=== PATIENT | male | born 1965 | race Caucasian/White ===

== ENCOUNTER 2019-04-07 22:31 | Inpatient (IN) | payer BC ==
[2019-04-07] MEDS ORDERED: Ketorolac INJ* 30 MG/ML 1 ML VIAL IV PUSH ONE (23:24)
[2019-04-07] MEDS ORDERED: Ondansetron INJ* 2 MG/ML VIAL IV ONE (23:24)
[2019-04-07] MEDS ORDERED: NS 0.9% 1000 ML** 1,000 ML IV ONE (23:24)
[2019-04-08 00:12] LABS: ABS Eosinophils 0.1 10^3/ul (0-0.6); ABS Lymphocytes 0.8 10^3/ul (1.0-4.8); ABS Monocytes 0.3 10^3/ul (0-0.8); ABS Neutrophils 6.9 10^3/ul (1.5-7.7); Eosinophil % 0.8 %; Hematocrit 41 % (42-52); Hemoglobin 14.5 g/dL (14.0-18.0); Lymphocyte % 10.2 %; Mean Corpuscular HGB Conc 35 g/dL (31-36); Mean Corpuscular Hemoglobin 32 pg (27-31); Mean Corpuscular Volume 89 fL (80-94); Mean Platelet Volume 8.1 fL (7.4-10.4); Nucleated Red Blood Cells % 0.2; Platelet Count 152 10^3/uL (150-450); Red Blood Count 4.61 10^6 /uL (4.18-5.48); Red Cell Distribution Width 13 % (10-15); White Blood Count 8.2 10^3/uL (3.5-10.8)
[2019-04-08 00:15] LABS: INR 0.95 (0.82-1.09)
[2019-04-08] MEDS ORDERED: Morphine 4 MG/ML VIAL (1 ml) 4 MG/ML VIAL IV ONE (00:21)
[2019-04-08 00:28] LABS: Albumin 4.3 g/dL (3.2-5.2); Albumin/Globulin Ratio 1.7 (1-3); C Reactive Protein 6.15 mg/L (<8.01); Calcium 9.3 mg/dL (8.6-10.3); EGFR African American 94.2 (>60); EGFR Non-African American 77.9 (>60); Globulin 2.6 g/dL (2-4); Potassium 3.6 mmol/L (3.5-5.0); Total Bilirubin 0.7 mg/dL (0.2-1.0); Total Protein 6.9 g/dL (6.4-8.9)
--- NOTE | 2019-04-08 00:40 | ED ---
Abdominal Pain/Male - HPI Summary HPI Summary: Patient is a 53 y/o M presenting to [facility] with complaints of abdominal pain. Pain initially onset at around 1700 04/07/19 and has progressively worsened. He states that the pain is at his lower abdomen and radiates towards his upper abdomen. Patient also makes note of a sharp pain that he has just below his right rib cage. He endorses shakiness and attributes this to his pain. Patient also notes that he experiences an exacerbation of his pain whenever he tries to void and states that he has been unable to void since 1700. N/V/D, fever and chills are denied. On triage, pain is rated 10/10, position is noted to aggravate Sx. Patient states that he had a somewhat similar episode of Sx when he had diverticulitis years ago. However, he states that he did not have the sharp, upper right pain that he has been currently experiencing. Hx of HTN and GERD endorsed as well. Patient was recently started on a beta annamaria. He notes that he is on metformin. The patient states that he has been told by one doctor that he is pre-diabetic and another has told him he is not as his blood sugar was WNL. Home medications and allergies are reviewed. - History of Current Complaint Chief Complaint: EDAbdPain Stated Complaint: ABD PAIN PER PT Time Seen by Provider: 04/07/19 23:23 Hx Obtained From: Patient Onset/Duration: Lasting Hours, Still Present Timing: Lasting Hours Severity Currently: Severe Pain Intensity: 10 Pain Scale Used: 0-10 Numeric Location: Other - lower abdomen Radiates: Yes Radiates to: Other - upper abdomen Character: Sharp - under right rib cage Aggravating Factor(s): Movement Alleviating Factor(s): Nothing Associated Signs And Symptoms: Positive: Other - positive - abdominal pain, shakiness, inability to void. Negative: Fever, Nausea, Vomiting, Diarrhea - Allergies/Home Medications Allergies/Adverse Reactions: Allergies Allergy/AdvReac Type Severity Reaction Status Date / Time No Known Allergies Allergy Verified 10/26/13 15:21 Home Medications: Home Medications Metformin ER (NF) 04/07/19 [History] Sertraline* 04/07/19 [History] PMH/Surg Hx/FS Hx/Imm Hx Cardiovascular History: Reports: Hx Hypertension GI History: Reports: Hx Gastroesophageal Reflux Disease, Other GI Disorders - diverticulitis Sensory History: Denies: Hx Legally Blind, Hx Deafness Opthamlomology History: Denies: Hx Legally Blind EENT History: Denies: Hx Deafness Infectious Disease History: No Infectious Disease History: Denies: Traveled Outside the [place] in Last 30 Days - Family History Known Family History: Positive: Other - no FMHx of diverticulitis - Social History Alcohol Use: Daily Alcohol Amount: 2 glasses wine Substance Use Type: Reports: None Smoking Status (MU): Unknown if Ever Smoked Review of Systems - ROS Summary Review of Systems Summary: Home Medications Medication Instructions Recorded Confirmed Type Metformin ER (NF) 04/07/19 History Sertraline* 04/07/19 History Constitutional: Other - positive - shakiness Negative: Fever, Chills Positive: Abdominal Pain. Negative: Vomiting, Diarrhea, Nausea Genitourinary: Other - positive - inability to void All Other Systems Reviewed And Are Negative: Yes Physical Exam - Summary Physical Exam Summary: General: Well-developed, Obese male. Mild discomfort at rest noted. HEENT: Normocephalic, Atraumatic. Eyes: Conjuctiva normal, PERRL. Oropharynx: Clear, mucous membranes moist, (-) exudates. Neck: Soft, FROM, (-) lymphadenopathy, (-) thyromegaly, (-) JVD. Cardiovascular: Normal sinus rhythm, (-) murmur. Lungs: Clear to auscultation bilaterally (-) wheezes, (-) rales, (-) rhonchi. Abdomen: Moderate tenderness at LLQ, RLQ, suprapubic area, and right lateral abdomen. Soft, non-distended, (-) organomegaly, normal bowel sounds. Back: (-) CVA tenderness Extremities: No edema. Skin: Warm, dry, (-) rash. Neuro: Alert and oriented x3, no focal deficits. Psychiatric: Mood normal, affect normal. Triage Information Reviewed: Yes Vital Signs On Initial Exam: Initial Vitals Temp Pulse Resp BP Pulse Ox 97.9 F 80 22 148/100 98 04/07/19 22:32 04/07/19 22:32 04/07/19 22:32 04/07/19 22:32 04/07/19 22:32 Vital Signs Reviewed: Yes Procedures - Sedation Patient Received Moderate/Deep Sedation with Procedure: No Diagnostics - Vital Signs Vital Signs Temp Pulse Resp BP Pulse Ox 04/08/19 00:25 24 04/07/19 23:48 99.5 F 90 22 153/87 97 04/07/19 22:32 97.9 F 80 22 148/100 98 - Laboratory Lab Results: Lab Results 04/08/19 04/08/19 04/08/19 Range/Units 00:01 00:01 00:01 WBC 8.2 (3.5-10.8) 10^3/uL RBC 4.61 (4.18-5.48) 10^6 /uL Hgb 14.5 (14.0-18.0) g/dL Hct 41 L (42-52) % MCV 89 (80-94) fL MCH 32 H (27-31) pg MCHC 35 (31-36) g/dL RDW 13 (10-15) % Plt Count 152 (150-450) 10^3/uL MPV 8.1 (7.4-10.4) fL Neut % (Auto) 84.5 % Lymph % (Auto) 10.2 % [place] % (Auto) 4.3 % Eos % (Auto) 0.8 % Baso % (Auto) 0.2 % Absolute Neuts (auto) 6.9 (1.5-7.7) 10^3/ul Absolute Lymphs (auto) 0.8 L (1.0-4.8) 10^3/ul Absolute Monos (auto) 0.3 (0-0.8) 10^3/ul Absolute Eos (auto) 0.1 (0-0.6) 10^3/ul Absolute Basos (auto) 0.0 (0-0.2) 10^3/ul Absolute Nucleated RBC 0.0 10^3/ul Nucleated RBC % 0.2 INR (Anticoag Therapy) 0.95 (0.82-1.09) Lactic Acid 1.3 (0.5-2.0) mmol/L Result Diagrams: 04/08/19 00:01 04/08/19 00:01 Lab Statement: Any lab studies that have been ordered have been reviewed, and results considered in the medical decision making process. - CT CT ABD/PEL CT Interpretation Completed By: Radiologist Summary of CT Findings: IMPRESSION: There is colonic diverticulosis with wall thickening and fat stranding in the. sigmoid colon consistent with acute diverticulitis. There are air locules in. the adjacent inflamed mesenteric fat and a small quantity of free. intraperitoneal air also present consistent with complicated acute. diverticulitis with gross perforation but no visible abscess. THIS REPORT WAS REVIEWED BY ED PHYSICIAN. Re-Evaluation - Re-Evaluation First Eval Re-Evaluation Time: 00:33 Comment: Pain is still present after toradol, morphine administered. Bladder scan showed 75 CC only. Second Eval Re-Evaluation Time: 01:11 Comment: Pain is worsening. Fentanyl 100 mcg and more IV fluids given. Patient is unable to urinate. CT ordered. Third Eval Re-Evaluation Time: 02:38 Comment: CT discussed, patient is agreeable with admission. Abdominal Pain Male Course/Dx - Course Course Of Treatment: 53-year-old male presenting with lower abdominal pain. History of diverticulitis. Pain initially started in the left lower quadrant has moved to the right lower quadrant. No vomiting or diarrhea. No fevers. Workup demonstrates normal white blood cell count and lactic acid. Vitals stable. CT scan demonstrates acute diverticulitis with perforation. No obvious abscess. During ED course, patient received 2 L NS, Zofran 4 mg IV, Toradol 15 mg IV, morphine 4 mg IV, fentanyl 100 mcg, fentanyl 50 mcg, and piperacillin sod/tazobactam sod 3.375 gm in sodium chloride 100 mls @ 200 mls/ hr IVPB. Discussed with surgery on-call. They reviewed the CAT scan and agreed to consult in the morning. Admit to medicine. Patient referred to hospitalist for admission. - Diagnoses Provider Diagnoses: Diverticulitis of colon with perforation - Provider Notifications Discussed Care Of Patient With: Jeremiah Cornejo Time Discussed With Above Provider: 02:25 Instructed by Provider To: Other - 0220 - Dr. Oliver called about CT ABD/PEL. He states that the patient appears to have acute diverticulitis with obvious perforation, no abscess noted. 5 - Patient's case was discussed with Dr. Cornejo, Dr. Cornejo recommends antibiotics and admission. He will consult on case. 7 - Patient's case was discussed with Dr. Cramer, Dr. Cramer accepts for admission. Discharge ED - Sign-Out/Discharge Documenting (check all that apply): Patient Departure - admit - Discharge Plan Condition: Stable Disposition: ADMITTED TO [facility] Referrals: Johnny Wheeler MD [Primary Care Provider] - - Billing Disposition and Condition Condition: STABLE Disposition: Admitted to [facility] - Attestation Statements Document Initiated by Norberto: Yes Documenting Scribe: SUGEY MALLOY Provider For Whom Norberto is Documenting (Include Credential): GILES JAIMES MD Scribe Attestation: ISUGEY, scribed for GILES JAIMES MD on 04/08/19 at 0441. Scribe Documentation Reviewed: Yes Provider Attestation: The documentation as recorded by the SUGEY salter accurately reflects the service I personally performed and the decisions made by me, GILES JAIMES MD Status of Scribe Document: Viewed
[2019-04-08] MEDS ORDERED: NS 0.9% 1000 ML** 1,000 ML IV ONE (01:04)
[2019-04-08] MEDS ORDERED: fentaNYL* 50 MCG/ML 2 ML VIAL (100 MCG VIAL) IV SLOW PU ONE ×2 (01:05→02:22)
[2019-04-08] MEDS ORDERED: Iohexol 300* (CONTRAST) 10 ML SDV IV ONE (01:12)
[2019-04-08] MEDS ORDERED: Piperacillin/Tazobac ADVAN(*) 3.375 GM in NS 0.9% 100 ML* 100 ML IVPB ONE (02:25)
[2019-04-08 03:19] LABS: Urine Appearance Clear; Urine Bilirubin Negative (Negative); Urine Blood Negative (Negative); Urine Color Yellow; Urine Glucose Negative (Negative); Urine Ketones Negative (Negative); Urine Nitrite Negative (Negative); Urine Protein Negative (Negative); Urine Specific Gravity > 1.060 (1.010-1.030); Urine Urobilinogen Negative (Negative)
[2019-04-08] MEDS ORDERED: Acetaminophen TAB* 325 MG PO PRN (04:11)
[2019-04-08] MEDS ORDERED: Ondansetron INJ* 2 MG/ML VIAL IV PRN (04:33)
[2019-04-08 04:55] LABS: Magnesium 1.6 mg/dL (1.9-2.7)
[2019-04-08] MEDS ORDERED: Zosyn per Pharmacy* NOTE FOLLOW UP SCH (05:00)
[2019-04-08] MEDS: HYDROmorphone INJ1* 1 MG/ML SYRINGE IV SLOW PU PRN ×2 (05:25→09:02)
[2019-04-08] MEDS: Enoxaparin(*) 40 MG/0.4 ML SYR SUBCUT SCH (05:38)
[2019-04-08] MEDS: NS 0.9% w/ 20 Meq KCL 1000 ML* 1,000 ML IV SCH ×2 (05:41→23:00)
[2019-04-08] MEDS: ZOSYN 3.375 GM Q8H per EXTENDED INFUSION IVPB SCH ×6 (06:17→23:00)
--- NOTE | 2019-04-08 09:17 | CONSULT ---
Consult Consult: DATE OF CONSULT: 04/08/19 REASON FOR CONSULT: Abdominal pain due to diverticulitis HPI: Brandon Day is a 53-year-old with a history of diabetes and hypertension who presented to the ER last night with severe abdominal pain. He reports that at about 5 PM yesterday he had sudden onset of shooting lower abdominal pain radiating to the groin. He previously had been feeling his usual self The pain did not improve so he presented to the ED last night. He denies any fevers or chills. He denies nausea, vomiting, or diarrhea. His last bowel movement was at about 1 PM yesterday and was normal. He was hospitalized about 10 years ago for diverticulitis and treated with antibiotics alone. His last colonoscopy in 2013 was only remarkable for 2 benign polyps. He has had similar abdominal pain episodes which have been less severe. The last episode was a couple years ago, and he was treated as an outpatient with oral antibiotics. A CT scan of the abdomen and pelvis was performed in the ED. It was notable for acute diverticulitis with pneumoperitoneum localized to the lower abdomen. He was admitted to the hospitalist service and started on Zosyn. This admission the patient feels the pain is more or less the same. He has been receiving fentanyl which has been helping but wears off quickly. PMH: Hypertension Diabetes (he has been told that he was prediabetic but was started on metformin) Anxiety PSH: None Home Medications Medication Instructions Recorded Confirmed Type Metformin ER (NF) 04/07/19 History Sertraline* 04/07/19 History Allergies No Known Allergies Allergy (Verified 10/26/13 15:21) FAMILY HISTORY: Father from metastatic lung cancer. Mother is alive and has diabetes. Sister is healthy. There is a history of colon cancer in his maternal grandfather who was diagnosed in his 70s. SOCIAL HISTORY: The patient lives with his . He owns a liquor store. He denies tobacco or recreational drug use. He drinks at most 3-4 glasses of wine each day. ROS: A 10 point review of systems was obtained and pertinent positives and negatives are in the HPI. PHYSICAL EXAM: Temp Pulse Resp BP Pulse Ox 97.2 F 94 24 114/70 98 04/08/19 05:22 04/08/19 05:22 04/08/19 09:02 04/08/19 05:22 04/08/19 05:22 General: Very pleasant man. Appears uncomfortable. Head: Normocephalic and atraumatic Eyes: EOMI. No scleral icterus. Mouth: Moist mucous membranes. Neck: Trachea midline CV: Regular rate and rhythm. Respiratory: Clear to auscultation bilaterally. Abdomen: Soft. Moderately distended. Tender to palpation in the lower abdomen at the midline in the right lower quadrant. No guarding. Extremities: Warm and well perfused. No pedal edema. Skin: No lesions or rashes noted. Neuro: Alert and oriented 3. Laboratory Results - last 24 hr 04/08/19 04/08/19 04/08/19 00:01 00:01 00:01 WBC 8.2 RBC 4.61 Hgb 14.5 Hct 41 L MCV 89 MCH 32 H MCHC 35 RDW 13 Plt Count 152 MPV 8.1 Neut % (Auto) 84.5 Lymph % (Auto) 10.2 Sutter % (Auto) 4.3 Eos % (Auto) 0.8 Baso % (Auto) 0.2 Absolute Neuts (auto) 6.9 Absolute Lymphs (auto) 0.8 L Absolute Monos (auto) 0.3 Absolute Eos (auto) 0.1 Absolute Basos (auto) 0.0 Absolute Nucleated RBC 0.0 Nucleated RBC % 0.2 INR (Anticoag Therapy) 0.95 Sodium 136 Potassium 3.6 Chloride 100 L Carbon Dioxide 27 Anion Gap 9 BUN 22 Creatinine 1.00 Est GFR ( Amer) 94.2 Est GFR (Non-Af Amer) 77.9 BUN/Creatinine Ratio 22.0 H Glucose 108 H Hemoglobin A1c Lactic Acid Calcium 9.3 Magnesium 1.6 L Total Bilirubin 0.70 AST 22 ALT 26 Alkaline Phosphatase 45 C-Reactive Protein 6.15 Total Protein 6.9 Albumin 4.3 Globulin 2.6 Albumin/Globulin Ratio 1.7 Lipase 20 Urine Color Urine Appearance Urine pH Ur Specific D[place]man Urine Protein Urine Ketones Urine Blood Urine Nitrate Urine Bilirubin Urine Urobilinogen Ur Leukocyte Esterase Urine Glucose 04/08/19 04/08/19 04/08/19 00:01 00:01 03:10 WBC RBC Hgb Hct MCV MCH MCHC RDW Plt Count MPV Neut % (Auto) Lymph % (Auto) Sutter % (Auto) Eos % (Auto) Baso % (Auto) Absolute Neuts (auto) Absolute Lymphs (auto) Absolute Monos (auto) Absolute Eos (auto) Absolute Basos (auto) Absolute Nucleated RBC Nucleated RBC % INR (Anticoag Therapy) Sodium Potassium Chloride Carbon Dioxide Anion Gap BUN Creatinine Est GFR ( Amer) Est GFR (Non-Af Amer) BUN/Creatinine Ratio Glucose Hemoglobin A1c 5.6 Lactic Acid 1.3 Calcium Magnesium Total Bilirubin AST ALT Alkaline Phosphatase C-Reactive Protein Total Protein Albumin Globulin Albumin/Globulin Ratio Lipase Urine Color Yellow Urine Appearance Clear Urine pH 6.0 Ur Specific D[place]man > 1.060 H Urine Protein Negative Urine Ketones Negative Urine Blood Negative Urine Nitrate Negative Urine Bilirubin Negative Urine Urobilinogen Negative Ur Leukocyte Esterase Negative Urine Glucose Negative Diagnostics Summary of CT Findings [CT ABD /PEL] IMPRESSION: There is colonic diverticulosis with wall thickening and fat stranding in the sigmoid colon consistent with acute diverticulitis . There are air locules in the adjacent inflamed mesenteric fat and a small quantity of free intraperitoneal air also present consistent with complicated acute diverticulitis with gross perforation but no visible abscess. THIS REPORT WAS REVIEWED BY ED PHYSICIAN. ASSESSMENT: 53-year-old man with acute diverticulitis with perforation. I do not see evidence of generalized peritonitis on physical exam. I discussed with the patient that it would be reasonable to treat first with IV antibiotics. If he has worsening pain or becomes hemodynamically unstable, he may need emergent exploratory laparotomy, colon resection, colostomy. PLAN: Continue Zosyn. Consider GRE TUTOR for better pain control. We will continue to follow closely.
--- NOTE | 2019-04-08 09:58 | HP ---
CC: Dr. Wheeler * ADMISSION HISTORY AND PHYSICAL: DATE OF ADMISSION: 04/08/19 CHIEF COMPLAINT: Abdominal pain. HISTORY OF PRESENT ILLNESS: Mr. Day is a 53-year-old man with history of recurrent diverticulitis who developed abdominal pain in the lower abdomen area certainly around 5 p.m. today. The pain began in his lower abdomen and generalized and seemed to move to his right lower quadrant up to his right upper quadrant as hours went by. He rates the pain at 10/10 and the pain comes in waves. It is not associated with vomiting, nausea, or diarrhea. The pain is similar to previous episodes with diverticulitis. Review of chart shows that he had a colonoscopy in 2005 and a second colonoscopy in 2008 and that colonoscopy report documented that he had 3 prior episodes of diverticulitis in the sigmoid at that point. The patient states he has had no further diverticulitis in 10 years. PAST MEDICAL HISTORY: Includes hypertension, impaired fasting glucose versus diabetes, anxiety. PAST SURGICAL HISTORY: None. MEDICATIONS: 1. He takes metformin every day. 2. Sertraline once a day. 3. Blood pressure medication once a day. He is not sure of the names or doses of some of his medicines. ALLERGIES: None. FAMILY HISTORY: The patient reports a maternal grandfather with colon cancer. Mother had breast cancer. Father had lung cancer. His mother also had diabetes. 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 He is . He has 2 children. He does not smoke. He drinks wine about 3 glasses per day. No recreational drugs. REVIEW OF SYSTEMS: The patient denies any anorexia or weight loss in the recent days. The patient denies any chest pain or palpitations. The patient had chest pain 2 days ago associated with anxiety and Dr. Wheeler scheduled him for a stress test next month. The patient denies any cough, hemoptysis, or shortness of breath. The remainder of 14-point review of systems negative other than mentioned in the HPI. PHYSICAL EXAMINATION GENERAL: He is alert, in no acute distress. VITAL SIGNS: Temperature is 36.4, pulse 100, respirations 18, blood pressure 145/100, O2 sat 97%. HEENT: Head is normocephalic and atraumatic. Sclerae anicteric. Pupils are equal, round and reactive to light and accommodation. Oropharynx is moist. No lesions. NECK: No JVD. No carotid bruit. No thyromegaly. LUNGS: Clear to auscultation and percussion bilaterally. HEART: Tachycardic and regular. ABDOMEN: Soft. Tender throughout. Positive bowel sounds. No hepatosplenomegaly. EXTREMITIES: No peripheral edema. Dorsalis pedis pulses are 2+ bilaterally. NEUROLOGIC: Cranial nerves II through XII are intact. Motor strength is 5/5 throughout. Deep tendon reflexes are symmetric. MENTAL STATUS: He is alert and oriented x3. DIAGNOSTIC STUDIES/LAB DATA: Sodium 136, potassium 3.6, chloride 100, bicarb 27, BUN 22, creatinine 1.0, glucose 108, calcium 9.3. Albumin 4.3, AST 22, ALT 26, bilirubin 0.7, lactic acid 1.3, INR 0.95, lipase is 20. White count is 8.2 , hemoglobin 14.5, hematocrit 41%, platelets are 152. Urinalysis shows specific gravity greater than 1.060. CT abdomen and pelvis shows acute sigmoid diverticulitis with perforation with small air locules and mesenteric fat inflammation. ASSESSMENT AND PLAN: This is a 53-year-old man with recurrent sigmoid diverticulitis. The patient will be admitted to medical floor and maintain hydration with intravenous normal saline. We can continue him on Zosyn and follow any blood cultures to possibly narrow antibiotic coverage. He will have consultation with Surgery regarding the perforation. This may be managed conservatively versus he may develop an abscess that requires IR drainage. Along with that, we can consider having sigmoidectomy due to recurrent diverticulitis. Code status: Full DVT prophylaxis: We will give him subcutaneous Lovenox. [id number]/[facility] #: [id number] [facility] HOSPITALDunia
[2019-04-08] MEDS ORDERED: Naloxone* 0.4 MG/ML 1 ML VIAL IV PUSH PRN (11:53)
[2019-04-08] MEDS: HYDROmorphone PCA* 20 MG/20 ML PCA.SYRING PCA SCH (12:40)
--- NOTE | 2019-04-08 13:33 | PN ---
Subjective Date of Service: 04/08/19 Interval History: Pt c/o severe abd pain despite tx with Dilaudid Q3H. Last BM yesterday, no nausea Objective Active Medications: Acetaminophen (Tylenol Tab*) 650 mg PO Q4H PRN PRN Reason: FEVER/HEADACHE Enoxaparin Sodium (Lovenox(*)) 40 mg SUBCUT Q24H [facility] Last Admin: 04/08/19 05:38 Dose: 40 mg Potassium Chloride/Sodium Chloride (Ns 0.9% W/ 20 Meq Kcl 1000 Ml*) 1,000 mls @ 100 mls/hr IV PER RATE [facility] Last Admin: 04/08/19 05:41 Dose: 100 mls/hr Piperacillin Sod/Tazobactam (Sod 3.375 gm/ Sodium Chloride) 100 mls @ 25 mls/ hr IVPB Q8H [facility] Last Admin: 04/08/19 06:17 Dose: 25 mls/hr Hydromorphone HCl (Dilaudid Public Health Program Manager*) 20 mg in 20 mls @ 0 mls/hr FOOD MIXER Q24H [facility]; Protocol Last Admin: 04/08/19 12:40 Dose: 1 mls/hr Naloxone HCl (Narcan*) 0.08 mg IV PUSH .Q2MIN PRN PRN Reason: OVERSEDATION Ondansetron HCl (Zofran Inj*) 4 mg IV Q6H PRN PRN Reason: NAUSEA Pantoprazole Sodium (Protonix Iv*) 40 mg IV DAILY [facility] Pharmacy Consult (Zosyn Per Pharmacy*) 1 note FOLLOW UP .ZOSYN PER PHARMACY [facility] Vital Signs - 8 hr 04/08/19 04/08/19 04/08/19 06:46 09:02 11:55 Pulse Rate Respiratory 18 24 24 Rate Blood Pressure (mmHg) O2 Sat by Pulse 90 Oximetry 04/08/19 04/08/19 12:40 12:43 Pulse Rate 87 Respiratory 24 24 Rate Blood Pressure 152/102 (mmHg) O2 Sat by Pulse 90 Oximetry Oxygen Devices in Use Now: None Appearance: 53 to M in nAD, aAOx3 Eyes: No Scleral Icterus, PERRLA Ears/Nose/Mouth/Throat: NL Teeth, Lips, Gums, Mucous Membranes Moist Neck: NL Appearance and Movements; NL JVP, Trachea Midline Respiratory: Symmetrical Chest Expansion and Respiratory Effort, Clear to Auscultation Cardiovascular: NL Sounds; No Murmurs; No JVD, RRR Abdominal: - - distended, tympanic, with voluntary quarding and hypoactive bowel sounds throughout Lymphatic: No Cervical Adenopathy Extremities: No Edema, No Clubbing, Cyanosis Skin: No Rash or Ulcers, No Nodules or Sclerosis Neurological: Alert and Oriented x 3, NL Muscle Strength and Tone Result Diagrams: 04/08/19 00:01 04/08/19 00:01 Additional Lab and Data: Lab Results 04/08/19 04/08/19 04/08/19 Range/Units 00:01 00:01 00:01 WBC 8.2 (3.5-10.8) 10^3/uL RBC 4.61 (4.18-5.48) 10^6 /uL Hgb 14.5 (14.0-18.0) g/dL Hct 41 L (42-52) % MCV 89 (80-94) fL MCH 32 H (27-31) pg MCHC 35 (31-36) g/dL RDW 13 (10-15) % Plt Count 152 (150-450) 10^3/uL MPV 8.1 (7.4-10.4) fL Neut % (Auto) 84.5 % Lymph % (Auto) 10.2 % [place] % (Auto) 4.3 % Eos % (Auto) 0.8 % Baso % (Auto) 0.2 % Absolute Neuts (auto) 6.9 (1.5-7.7) 10^3/ul Absolute Lymphs (auto) 0.8 L (1.0-4.8) 10^3/ul Absolute Monos (auto) 0.3 (0-0.8) 10^3/ul Absolute Eos (auto) 0.1 (0-0.6) 10^3/ul Absolute Basos (auto) 0.0 (0-0.2) 10^3/ul Absolute Nucleated RBC 0.0 10^3/ul Nucleated RBC % 0.2 INR (Anticoag Therapy) 0.95 (0.82-1.09) Lactic Acid 1.3 (0.5-2.0) mmol/L Assess/Plan/Problems-Billing Assessment: 53 yo M with h/o DM2, diverticulitis in the past presents with diverticulitis and perforation - Patient Problems (1) Perforation of sigmoid colon due to diverticulitis Comment: cont conservative tx with Zosyn, IVF,ice chips only diet Appreciate surgical consult Pt is in significant amount of pain and Dilaudid FOOD MIXER will be started Pt's abd exam is worrisome-will obtain CBC, LA and CRP (2) GERD (gastroesophageal reflux disease) Comment: start Protonix IV (3) DM2 (diabetes mellitus, type 2) Comment: on fingersticks BID (4) DVT prophylaxis Comment: Lovenox
[2019-04-08 14:36] LABS: ABS Lymphocytes 0.9 10^3/ul (1.0-4.8); ABS Monocytes 0.5 10^3/ul (0-0.8); ABS Neutrophils 8.5 10^3/ul (1.5-7.7); Eosinophil % 0.1 %; Hematocrit 37 % (42-52); Hemoglobin 12.9 g/dL (14.0-18.0); Lymphocyte % 8.7 %; Mean Corpuscular HGB Conc 36 g/dL (31-36); Mean Corpuscular Hemoglobin 32 pg (27-31); Mean Corpuscular Volume 90 fL (80-94); Mean Platelet Volume 7.9 fL (7.4-10.4); Platelet Count 136 10^3/uL (150-450); Red Blood Count 4.04 10^6 /uL (4.18-5.48); Red Cell Distribution Width 13 % (10-15); White Blood Count 9.9 10^3/uL (3.5-10.8)
[2019-04-09] MEDS: Analgesic BALM* 114 GM TOPICAL PRN ×4 (04:05→22:27)
[2019-04-09] MEDS: Enoxaparin(*) 40 MG/0.4 ML SYR SUBCUT SCH (05:33)
[2019-04-09] MEDS: ZOSYN 3.375 GM Q8H per EXTENDED INFUSION IVPB SCH ×6 (05:34→22:20)
[2019-04-09 08:06] LABS: ABS Lymphocytes 0.6 10^3/ul (1.0-4.8); ABS Monocytes 0.4 10^3/ul (0-0.8); ABS Neutrophils 6.4 10^3/ul (1.5-7.7); Eosinophil % 0.4 %; Hematocrit 35 % (42-52); Lymphocyte % 8.1 %; Mean Corpuscular HGB Conc 35 g/dL (31-36); Mean Corpuscular Hemoglobin 32 pg (27-31); Mean Corpuscular Volume 92 fL (80-94); Mean Platelet Volume 8.5 fL (7.4-10.4); Platelet Count 118 10^3/uL (150-450); Red Blood Count 3.77 10^6 /uL (4.18-5.48); Red Cell Distribution Width 13 % (10-15); White Blood Count 7.4 10^3/uL (3.5-10.8)
[2019-04-09 08:14] LABS: BUN/Creatinine Ratio 27.7 (8-20); C Reactive Protein 238.3 mg/L (<8.01); Calcium 8.9 mg/dL (8.6-10.3); EGFR African American 116.8 (>60); EGFR Non-African American 96.5 (>60); Potassium 4.1 mmol/L (3.5-5.0)
--- NOTE | 2019-04-09 08:50 | PN ---
Progress Note - Progress Note Date of Service: 04/09/19 Note: Patient still has stabbing and shooting lower abdominal pain that is unchanged from yesterday. Overall he feels he has improved a little since admission. Pain is better controlled at about 4/10. One episode of emesis this morning but nausea has resolved. Has been walking to the bathroom. Abdominal pain a little worse with urination. Passing small amount of flatus. Afebrile, HR improved Temp Pulse Resp BP Pulse Ox 98.3 F 62 18 130/76 98 04/09/19 07:40 04/09/19 07:40 04/09/19 07:40 04/09/19 07:40 04/09/19 07:40 Intake & Output 04/08/19 04/09/19 04/09/19 22:59 06:59 14:59 Intake Total 1095 587 Balance 1095 587 General: No acute distress, appears more comfortable than yesterday. Abdomen: moderately distended unchanged. Soft. Tender to palpation in lower abdomen at midline and RLQ. Rebound tenderness in RLQ, no guarding. Extremities: No calf tenderness, no pedal edema. Neuro: Alert, oriented x3 Laboratory Results - last 24 hr 04/08/19 04/08/19 04/08/19 00:01 14:27 14:27 WBC 9.9 RBC 4.04 L Hgb 12.9 L Hct 37 L MCV 90 MCH 32 H MCHC 36 RDW 13 Plt Count 136 L MPV 7.9 Neut % (Auto) 85.9 Lymph % (Auto) 8.7 [place] % (Auto) 5.0 Eos % (Auto) 0.1 Baso % (Auto) 0.3 Absolute Neuts (auto) 8.5 H Absolute Lymphs (auto) 0.9 L Absolute Monos (auto) 0.5 Absolute Eos (auto) 0.0 Absolute Basos (auto) 0.0 Absolute Nucleated RBC 0.0 Nucleated RBC % 0.0 Sodium Potassium Chloride Carbon Dioxide Anion Gap BUN Creatinine Est GFR ( Amer) Est GFR (Non-Af Amer) BUN/Creatinine Ratio Glucose POC Glucose (mg/dL) Hemoglobin A1c 5.6 Lactic Acid 0.8 Calcium C-Reactive Protein 04/08/19 04/08/19 04/08/19 14:27 17:55 22:42 WBC RBC Hgb Hct MCV MCH MCHC RDW Plt Count MPV Neut % (Auto) Lymph % (Auto) [place] % (Auto) Eos % (Auto) Baso % (Auto) Absolute Neuts (auto) Absolute Lymphs (auto) Absolute Monos (auto) Absolute Eos (auto) Absolute Basos (auto) Absolute Nucleated RBC Nucleated RBC % Sodium Potassium Chloride Carbon Dioxide Anion Gap BUN Creatinine Est GFR ( Amer) Est GFR (Non-Af Amer) BUN/Creatinine Ratio Glucose POC Glucose (mg/dL) 123 H 111 H Hemoglobin A1c Lactic Acid Calcium C-Reactive Protein 142.96 H 04/09/19 04/09/19 07:35 07:35 WBC 7.4 RBC 3.77 L Hgb 12.0 L Hct 35 L MCV 92 MCH 32 H MCHC 35 RDW 13 Plt Count 118 L MPV 8.5 Neut % (Auto) 86.5 Lymph % (Auto) 8.1 [place] % (Auto) 4.8 Eos % (Auto) 0.4 Baso % (Auto) 0.2 Absolute Neuts (auto) 6.4 Absolute Lymphs (auto) 0.6 L Absolute Monos (auto) 0.4 Absolute Eos (auto) 0.0 Absolute Basos (auto) 0.0 Absolute Nucleated RBC 0.0 Nucleated RBC % 0.0 Sodium 135 Potassium 4.1 Chloride 103 Carbon Dioxide 25 Anion Gap 7 BUN 23 Creatinine 0.83 Est GFR ( Amer) 116.8 Est GFR (Non-Af Amer) 96.5 BUN/Creatinine Ratio 27.7 H Glucose 121 H POC Glucose (mg/dL) Hemoglobin A1c Lactic Acid Calcium 8.9 C-Reactive Protein 238.30 H A&P: 53M with acute diverticulitis with perforation. Appears to be about the same clinically, although the tenderness may be slightly improved. WBC still normal and hemodynamically stable. Will continue to monitor closely for changes in physical exam. -Continue Zosyn -Pain control. -If nausea recurs and persists consider NGT.
--- NOTE | 2019-04-09 09:04 | PN ---
Subjective Date of Service: 04/09/19 Interval History: pt vomited once today. abd pain is improving. Urinating a lot and passing flatus , no BM's Objective Active Medications: Acetaminophen (Tylenol Tab*) 650 mg PO Q4H PRN PRN Reason: FEVER/HEADACHE Enoxaparin Sodium (Lovenox(*)) 40 mg SUBCUT Q24H [facility] Last Admin: 04/09/19 05:33 Dose: 40 mg Potassium Chloride/Sodium Chloride (Ns 0.9% W/ 20 Meq Kcl 1000 Ml*) 1,000 mls @ 100 mls/hr IV PER RATE [facility] Last Admin: 04/08/19 23:00 Dose: 100 mls/hr Piperacillin Sod/Tazobactam (Sod 3.375 gm/ Sodium Chloride) 100 mls @ 25 mls/ hr IVPB Q8H [facility] Last Admin: 04/09/19 05:34 Dose: 25 mls/hr Hydromorphone HCl (Dilaudid [employer] Certified Internetwork Expert*) 20 mg in 20 mls @ 0 mls/hr WEAVING MACHINE OPERATOR Q24H [facility]; Protocol Last Admin: 04/08/19 12:40 Dose: 1 mls/hr Multi-Ingredient Liniment/Rub (Harish Rome*) 1 applic TOPICAL Q6H PRN PRN Reason: MUSCLE ACHES Last Admin: 04/09/19 04:05 Dose: 1 applic Naloxone HCl (Narcan*) 0.08 mg IV PUSH .Q2MIN PRN PRN Reason: OVERSEDATION Ondansetron HCl (Zofran Inj*) 4 mg IV Q6H PRN PRN Reason: NAUSEA Last Admin: 04/09/19 06:26 Dose: 4 mg Pantoprazole Sodium (Protonix Iv*) 40 mg IV DAILY [facility] Pharmacy Consult (Zosyn Per Pharmacy*) 1 note FOLLOW UP .ZOSYN PER PHARMACY [facility] Vital Signs - 8 hr 04/09/19 04/09/19 04/09/19 01:58 02:55 04:00 Temperature 98.0 F Pulse Rate 65 Respiratory 18 20 18 Rate Blood Pressure 117/63 (mmHg) O2 Sat by Pulse 93 97 95 Oximetry 04/09/19 04/09/19 06:00 07:40 Temperature 98.3 F Pulse Rate 62 Respiratory 20 18 Rate Blood Pressure 130/76 (mmHg) O2 Sat by Pulse 94 98 Oximetry Oxygen Devices in Use Now: Nasal Cannula Appearance: 53 yo m in nAD, aAOx3 Eyes: No Scleral Icterus, PERRLA Ears/Nose/Mouth/Throat: NL Teeth, Lips, Gums, Mucous Membranes Moist Neck: NL Appearance and Movements; NL JVP, Trachea Midline Respiratory: Symmetrical Chest Expansion and Respiratory Effort, Clear to Auscultation Cardiovascular: NL Sounds; No Murmurs; No JVD Abdominal: - - soft, diffusely tender, no guarding , BS+ Lymphatic: No Cervical Adenopathy Extremities: No Edema Skin: No Rash or Ulcers, No Nodules or Sclerosis Neurological: Alert and Oriented x 3, NL Muscle Strength and Tone Result Diagrams: 04/09/19 07:35 04/09/19 07:35 Additional Lab and Data: Lab Results 04/08/19 04/08/19 04/08/19 Range/Units 00:01 00:01 00:01 WBC 8.2 (3.5-10.8) 10^3/uL RBC 4.61 (4.18-5.48) 10^6 /uL Hgb 14.5 (14.0-18.0) g/dL Hct 41 L (42-52) % MCV 89 (80-94) fL MCH 32 H (27-31) pg MCHC 35 (31-36) g/dL RDW 13 (10-15) % Plt Count 152 (150-450) 10^3/uL MPV 8.1 (7.4-10.4) fL Neut % (Auto) 84.5 % Lymph % (Auto) 10.2 % [place] % (Auto) 4.3 % Eos % (Auto) 0.8 % Baso % (Auto) 0.2 % Absolute Neuts (auto) 6.9 (1.5-7.7) 10^3/ul Absolute Lymphs (auto) 0.8 L (1.0-4.8) 10^3/ul Absolute Monos (auto) 0.3 (0-0.8) 10^3/ul Absolute Eos (auto) 0.1 (0-0.6) 10^3/ul Absolute Basos (auto) 0.0 (0-0.2) 10^3/ul Absolute Nucleated RBC 0.0 10^3/ul Nucleated RBC % 0.2 INR (Anticoag Therapy) 0.95 (0.82-1.09) Lactic Acid 1.3 (0.5-2.0) mmol/L Assess/Plan/Problems-Billing Assessment: 53 yo M with h/o DM2, diverticulitis in the past presents with diverticulitis and perforation - Patient Problems (1) Perforation of sigmoid colon due to diverticulitis Comment: cont conservative tx with Zosyn, IVF,ice chips only diet Appreciate surgical consult Cont Dilaudid WEAVING MACHINE OPERATOR -pain is improving CRP still increasing, but clinically better (2) GERD (gastroesophageal reflux disease) Comment: cont Protonix IV (3) DM2 (diabetes mellitus, type 2) Comment: on fingersticks BID (4) DVT prophylaxis Comment: Lovenox Status and Disposition: inpatient
[2019-04-09] MEDS: Pantoprazole IV* 40 MG IV SCH (09:57)
[2019-04-09] MEDS: HYDROmorphone PCA* 20 MG/20 ML PCA.SYRING PCA SCH (15:48)
[2019-04-09] MEDS: NS 0.9% w/ 20 Meq KCL 1000 ML* 1,000 ML IV SCH (16:03)
[2019-04-10] MEDS: NS 0.9% w/ 20 Meq KCL 1000 ML* 1,000 ML IV SCH (03:27)
[2019-04-10] MEDS: ZOSYN 3.375 GM Q8H per EXTENDED INFUSION IVPB SCH ×6 (05:42→22:12)
[2019-04-10] MEDS: Enoxaparin(*) 40 MG/0.4 ML SYR SUBCUT SCH (05:43)
[2019-04-10] MEDS: Analgesic BALM* 114 GM TOPICAL PRN ×2 (05:46→20:13)
[2019-04-10 07:15] LABS: Hematocrit 31 % (42-52); Hemoglobin 10.7 g/dL (14.0-18.0); Mean Corpuscular HGB Conc 35 g/dL (31-36); Mean Corpuscular Hemoglobin 32 pg (27-31); Mean Corpuscular Volume 91 fL (80-94); Mean Platelet Volume 7.9 fL (7.4-10.4); Platelet Count 107 10^3/uL (150-450); Red Blood Count 3.37 10^6 /uL (4.18-5.48); Red Cell Distribution Width 13 % (10-15); White Blood Count 5.7 10^3/uL (3.5-10.8)
[2019-04-10 07:29] LABS: Calcium 8.1 mg/dL (8.6-10.3); Potassium 4.1 mmol/L (3.5-5.0)
[2019-04-10 07:35] LABS: BUN/Creatinine Ratio 29.9 (8-20); EGFR African American 126.9 (>60); EGFR Non-African American 104.9 (>60)
[2019-04-10] MEDS: Pantoprazole IV* 40 MG IV SCH (08:20)
[2019-04-10] MEDS ORDERED: D5LR 1000 ML BAG* 1,000 ML IV SCH (09:00)
[2019-04-10] MEDS: D5NS 0.9% 1000 ML BAG* 1,000 ML IV SCH ×2 (09:27→20:13)
[2019-04-10] MEDS ORDERED: HYDROmorphone PCA* 20 MG/20 ML PCA.SYRING PCA SCH (11:47)
--- NOTE | 2019-04-10 11:49 | PN ---
Subjective Date of Service: 04/10/19 Interval History: pt's pain is at 2/10, passing flatus, no BM's, no nausea Objective Active Medications: Acetaminophen (Tylenol Tab*) 650 mg PO Q4H PRN PRN Reason: FEVER/HEADACHE Enoxaparin Sodium (Lovenox(*)) 40 mg SUBCUT Q24H [facility] Last Admin: 04/10/19 05:43 Dose: 40 mg Piperacillin Sod/Tazobactam (Sod 3.375 gm/ Sodium Chloride) 100 mls @ 25 mls/ hr IVPB Q8H [facility] Last Admin: 04/10/19 05:42 Dose: 25 mls/hr Hydromorphone HCl (Dilaudid Compounding Assistant*) 20 mg in 20 mls @ 0 mls/hr SENIOR INTEGRATION DEVELOPER Q24H [facility]; Protocol Last Admin: 04/09/19 15:48 Dose: 1 mls/hr Dextrose/Sodium Chloride (D5ns 0.9% 1000 Ml Bag*) 1,000 mls @ 100 mls/hr IV PER RATE [facility] Last Admin: 04/10/19 09:27 Dose: 100 mls/hr Multi-Ingredient Liniment/Rub (Harish Rome*) 1 applic TOPICAL Q6H PRN PRN Reason: MUSCLE ACHES Last Admin: 04/10/19 05:46 Dose: 1 applic Naloxone HCl (Narcan*) 0.08 mg IV PUSH .Q2MIN PRN PRN Reason: OVERSEDATION Ondansetron HCl (Zofran Inj*) 4 mg IV Q6H PRN PRN Reason: NAUSEA Last Admin: 04/09/19 06:26 Dose: 4 mg Pantoprazole Sodium (Protonix Iv*) 40 mg IV DAILY [facility] Last Admin: 04/10/19 08:20 Dose: 40 mg Pharmacy Consult (Zosyn Per Pharmacy*) 1 note FOLLOW UP .ZOSYN PER PHARMACY [facility] Vital Signs - 8 hr 04/10/19 04/10/19 04/10/19 05:00 06:49 07:00 Temperature Pulse Rate 55 Respiratory 18 14 Rate Blood Pressure (mmHg) O2 Sat by Pulse 94 95 100 Oximetry 04/10/19 07:15 Temperature 98.0 F Pulse Rate 59 Respiratory 14 Rate Blood Pressure 140/86 (mmHg) O2 Sat by Pulse 100 Oximetry Oxygen Devices in Use Now: Nasal Cannula Appearance: 54 yo M in nAD, AAOx3 Eyes: No Scleral Icterus, PERRLA Ears/Nose/Mouth/Throat: NL Teeth, Lips, Gums, Mucous Membranes Moist Neck: NL Appearance and Movements; NL JVP, Trachea Midline Respiratory: Symmetrical Chest Expansion and Respiratory Effort, Clear to Auscultation Cardiovascular: NL Sounds; No Murmurs; No JVD, RRR Abdominal: - - soft, minimally tender in b/l LQ's, no rebound, no guarding, BS+ Lymphatic: No Cervical Adenopathy Extremities: No Edema Skin: No Rash or Ulcers, No Nodules or Sclerosis Neurological: Alert and Oriented x 3, NL Muscle Strength and Tone Result Diagrams: 04/10/19 06:58 04/10/19 06:58 Additional Lab and Data: Lab Results 04/08/19 04/08/19 04/08/19 Range/Units 00:01 00:01 00:01 WBC 8.2 (3.5-10.8) 10^3/uL RBC 4.61 (4.18-5.48) 10^6 /uL Hgb 14.5 (14.0-18.0) g/dL Hct 41 L (42-52) % MCV 89 (80-94) fL MCH 32 H (27-31) pg MCHC 35 (31-36) g/dL RDW 13 (10-15) % Plt Count 152 (150-450) 10^3/uL MPV 8.1 (7.4-10.4) fL Neut % (Auto) 84.5 % Lymph % (Auto) 10.2 % [place] % (Auto) 4.3 % Eos % (Auto) 0.8 % Baso % (Auto) 0.2 % Absolute Neuts (auto) 6.9 (1.5-7.7) 10^3/ul Absolute Lymphs (auto) 0.8 L (1.0-4.8) 10^3/ul Absolute Monos (auto) 0.3 (0-0.8) 10^3/ul Absolute Eos (auto) 0.1 (0-0.6) 10^3/ul Absolute Basos (auto) 0.0 (0-0.2) 10^3/ul Absolute Nucleated RBC 0.0 10^3/ul Nucleated RBC % 0.2 INR (Anticoag Therapy) 0.95 (0.82-1.09) Lactic Acid 1.3 (0.5-2.0) mmol/L Assess/Plan/Problems-Billing Assessment: 53 yo M with h/o DM2, diverticulitis in the past presents with diverticulitis and perforation - Patient Problems (1) Perforation of sigmoid colon due to diverticulitis Comment: cont conservative tx with Zosyn, IVF,ice chips only diet Appreciate surgical consult Cont Dilaudid SENIOR INTEGRATION DEVELOPER -pain is improving, will lower Dialudid dose. Clinically better (2) GERD (gastroesophageal reflux disease) Comment: cont Protonix IV (3) DM2 (diabetes mellitus, type 2) Comment: on fingersticks TID today mild hypoglycemia, will start D5NS (4) DVT prophylaxis Comment: Lovenox Status and Disposition: inpatient
--- NOTE | 2019-04-10 12:06 | PN ---
Progress Note - Progress Note Date of Service: 04/10/19 Note: Surgery Progress Note S: Patient feels better today. Lying down, pain is 2/10. He had to use his HEEL SPRAYER occasionally. He is having flatus. Not particularly hungry. Urinating without difficulty. O: Vital Signs - 24 hr 04/09/19 04/09/19 04/09/19 12:11 15:12 15:48 Temperature Pulse Rate Respiratory 14 18 16 Rate Blood Pressure (mmHg) O2 Sat by Pulse 94 94 Oximetry 04/09/19 04/09/19 04/09/19 15:49 16:39 16:46 Temperature 97.8 F Pulse Rate 98 Respiratory 16 16 17 Rate Blood Pressure 130/60 (mmHg) O2 Sat by Pulse 94 97 Oximetry 04/09/19 04/09/19 04/09/19 16:47 18:55 19:17 Temperature 97.7 F Pulse Rate 62 Respiratory 16 16 16 Rate Blood Pressure 122/73 (mmHg) O2 Sat by Pulse 96 96 98 Oximetry 04/09/19 04/09/19 04/09/19 20:00 21:00 22:29 Temperature Pulse Rate Respiratory 16 16 18 Rate Blood Pressure (mmHg) O2 Sat by Pulse 94 94 Oximetry 04/09/19 04/10/19 04/10/19 23:24 03:00 03:20 Temperature 97.3 F 97.8 F Pulse Rate 68 57 Respiratory 20 16 20 Rate Blood Pressure 130/71 118/68 (mmHg) O2 Sat by Pulse 96 94 97 Oximetry 04/10/19 04/10/19 04/10/19 05:00 06:49 07:00 Temperature Pulse Rate 55 Respiratory 18 14 Rate Blood Pressure (mmHg) O2 Sat by Pulse 94 95 100 Oximetry 04/10/19 07:15 Temperature 98.0 F Pulse Rate 59 Respiratory 14 Rate Blood Pressure 140/86 (mmHg) O2 Sat by Pulse 100 Oximetry Laboratory Results - last 24 hr 04/09/19 04/09/19 04/10/19 08:03 19:43 06:58 WBC 5.7 RBC 3.37 L Hgb 10.7 L Hct 31 L MCV 91 MCH 32 H MCHC 35 RDW 13 Plt Count 107 L MPV 7.9 Sodium Potassium Chloride Carbon Dioxide Anion Gap BUN Creatinine Est GFR ( Amer) Est GFR (Non-Af Amer) BUN/Creatinine Ratio Glucose POC Glucose (mg/dL) 127 H 88 Calcium 04/10/19 04/10/19 04/10/19 06:58 07:29 11:15 WBC RBC Hgb Hct MCV MCH MCHC RDW Plt Count MPV Sodium 134 L Potassium 4.1 Chloride 103 Carbon Dioxide 27 Anion Gap 4 BUN 23 Creatinine 0.77 Est GFR ( Amer) 126.9 Est GFR (Non-Af Amer) 104.9 BUN/Creatinine Ratio 29.9 H Glucose 86 POC Glucose (mg/dL) 78 73 Calcium 8.1 L Intake & Output 04/09/19 04/10/19 04/10/19 22:59 06:59 14:59 Intake Total 3325 790 359 Output Total 0 Balance 3325 790 359 Intake: IV Fluids 2285 687 359 ABX - ZOSYN 105 NS (0.9%) 313 72 NS (0.9%) 20 meq KCL 1867 615 359 IVPB 80 103 ABX - ZOSYN 80 103 Oral 960 0 Output: Urine 0 Physical exam: Abdomen: soft, tender in lower midline and LLQ A/P: 54 M with perforated diverticulitis, improving. - Patient remains afebrile, WBC remains normal and pain has improved. Would recommend advancing diet very slowly, starting with sips and then CLD tomorrow. - Continue Zosyn
[2019-04-11] MEDS: ZOSYN 3.375 GM Q8H per EXTENDED INFUSION IVPB SCH ×6 (05:48→22:22)
[2019-04-11] MEDS: Enoxaparin(*) 40 MG/0.4 ML SYR SUBCUT SCH (05:48)
[2019-04-11] MEDS: Pantoprazole IV* 40 MG IV SCH (07:49)
--- NOTE | 2019-04-11 10:12 | PN ---
Subjective Date of Service: 04/11/19 Interval History: No overnight events. Brandon is feeling good this morning. He has not pushed the dilaudid STEEL WHEEL ENGRAVER since last night. He has had 5 loose bowel movements overnight. Pain is ipmroving. He has been up and walking and feels sore, but otherwise well. Tolerated sips of water and ashlee cuate this am. Objective Active Medications: Acetaminophen (Tylenol Tab*) 650 mg PO Q4H PRN PRN Reason: FEVER/HEADACHE Enoxaparin Sodium (Lovenox(*)) 40 mg SUBCUT Q24H [facility] Last Admin: 04/11/19 05:48 Dose: 40 mg Piperacillin Sod/Tazobactam (Sod 3.375 gm/ Sodium Chloride) 100 mls @ 25 mls/ hr IVPB Q8H [facility] Last Admin: 04/11/19 05:48 Dose: 25 mls/hr Dextrose/Sodium Chloride (D5ns 0.9% 1000 Ml Bag*) 1,000 mls @ 100 mls/hr IV PER RATE [facility] Last Admin: 04/10/19 20:13 Dose: 100 mls/hr Hydromorphone HCl (Dilaudid Launch Leader*) 20 mg in 20 mls @ 0 mls/hr STEEL WHEEL ENGRAVER Q24H [facility]; Protocol Multi-Ingredient Liniment/Rub (Harish Rome*) 1 applic TOPICAL Q6H PRN PRN Reason: MUSCLE ACHES Last Admin: 04/10/19 20:13 Dose: 1 applic Naloxone HCl (Narcan*) 0.08 mg IV PUSH .Q2MIN PRN PRN Reason: OVERSEDATION Ondansetron HCl (Zofran Inj*) 4 mg IV Q6H PRN PRN Reason: NAUSEA Last Admin: 04/09/19 06:26 Dose: 4 mg Pantoprazole Sodium (Protonix Iv*) 40 mg IV DAILY [facility] Last Admin: 04/11/19 07:49 Dose: 40 mg Pharmacy Consult (Zosyn Per Pharmacy*) 1 note FOLLOW UP .ZOSYN PER PHARMACY [facility] Vital Signs - 8 hr 04/11/19 04/11/19 04/11/19 03:10 03:20 05:59 Temperature 98.3 F Pulse Rate 51 Respiratory 18 16 16 Rate Blood Pressure 133/72 (mmHg) O2 Sat by Pulse 100 100 99 Oximetry 04/11/19 04/11/19 04/11/19 06:30 07:00 07:15 Temperature 98.0 F Pulse Rate 55 57 Respiratory 16 18 Rate Blood Pressure 135/81 (mmHg) O2 Sat by Pulse 94 95 97 Oximetry 04/11/19 07:56 Temperature Pulse Rate Respiratory 16 Rate Blood Pressure (mmHg) O2 Sat by Pulse Oximetry Oxygen Devices in Use Now: None Appearance: alert, well appearing Eyes: No Scleral Icterus Ears/Nose/Mouth/Throat: NL Teeth, Lips, Gums Neck: NL Appearance and Movements; NL JVP Respiratory: Symmetrical Chest Expansion and Respiratory Effort Cardiovascular: NL Sounds; No Murmurs; No JVD, RRR Abdominal: - - soft, mildly tender to palpation RLQ and suprapubically, bowel sounds hyperactive Lymphatic: No Cervical Adenopathy Extremities: No Edema Skin: No Rash or Ulcers Neurological: Alert and Oriented x 3 Result Diagrams: 04/10/19 06:58 04/10/19 06:58 Additional Lab and Data: Lab Results 04/08/19 04/08/19 04/08/19 Range/Units 00:01 00:01 00:01 WBC 8.2 (3.5-10.8) 10^3/uL RBC 4.61 (4.18-5.48) 10^6 /uL Hgb 14.5 (14.0-18.0) g/dL Hct 41 L (42-52) % MCV 89 (80-94) fL MCH 32 H (27-31) pg MCHC 35 (31-36) g/dL RDW 13 (10-15) % Plt Count 152 (150-450) 10^3/uL MPV 8.1 (7.4-10.4) fL Neut % (Auto) 84.5 % Lymph % (Auto) 10.2 % [place] % (Auto) 4.3 % Eos % (Auto) 0.8 % Baso % (Auto) 0.2 % Absolute Neuts (auto) 6.9 (1.5-7.7) 10^3/ul Absolute Lymphs (auto) 0.8 L (1.0-4.8) 10^3/ul Absolute Monos (auto) 0.3 (0-0.8) 10^3/ul Absolute Eos (auto) 0.1 (0-0.6) 10^3/ul Absolute Basos (auto) 0.0 (0-0.2) 10^3/ul Absolute Nucleated RBC 0.0 10^3/ul Nucleated RBC % 0.2 INR (Anticoag Therapy) 0.95 (0.82-1.09) Lactic Acid 1.3 (0.5-2.0) mmol/L Assess/Plan/Problems-Billing Assessment: 53 yo M with h/o DM2, diverticulitis in the past presents with diverticulitis and perforation - Patient Problems (1) Perforation of sigmoid colon due to diverticulitis Current Visit: No Status: Acute Code(s): K57.20 - DVTRCLI OF LG INT W PERFORATION AND ABSCESS W/O BLEEDING SNOMED Code(s): 1512473495292577 Comment: Improving without surgical intervention cont Zosyn Surgery following DC basal dilaudid infusion; continue PRN STEEL WHEEL ENGRAVER advance diet to clears for lunch (2) DM2 (diabetes mellitus, type 2) Current Visit: Yes Status: Acute Comment: with some hypoglycemia yesterday last figerstick was >100 off the D5 now with diet advancement, can DC fingersticks (3) DVT prophylaxis Current Visit: Yes Status: Acute Code(s): Z29.9 - ENCOUNTER FOR PROPHYLACTIC MEASURES, UNSPECIFIED SNOMED Code(s): 788151956 Comment: Lovenox Status and Disposition: inpatient; still on STEEL WHEEL ENGRAVER, need to advance diet . anticipate home independently at discharge.
[2019-04-11] MEDS: HYDROmorphone PCA* 20 MG/20 ML PCA.SYRING PCA SCH (10:54)
--- NOTE | 2019-04-11 14:07 | PN ---
Progress Note - Progress Note Date of Service: 04/11/19 Note: Surgery Progress Note S: Patient feels better today. Started having liquid BM overnight but this has been associated with some discomfort. He feels fairly constipated and that it takes a long time for the stool to come out. He had been taking sips of clears and clear liquid diet for lunch with no problems. Pain is 2-3/10. O: Vital Signs - 24 hr 04/10/19 04/10/19 04/10/19 15:00 15:15 16:48 Temperature 98.1 F Pulse Rate 61 55 Respiratory 18 17 Rate Blood Pressure 137/79 (mmHg) O2 Sat by Pulse 96 97 94 Oximetry 04/10/19 04/10/19 04/10/19 17:00 18:55 19:00 Temperature Pulse Rate 56 Respiratory 18 16 Rate Blood Pressure (mmHg) O2 Sat by Pulse 96 91 98 Oximetry 04/10/19 04/10/19 04/10/19 19:19 21:20 22:14 Temperature 98.5 F Pulse Rate 56 Respiratory 14 Rate Blood Pressure 162/97 (mmHg) O2 Sat by Pulse 98 96 94 Oximetry 04/10/19 04/10/19 04/10/19 22:44 22:55 23:15 Temperature 99.8 F Pulse Rate 58 Respiratory 16 16 18 Rate Blood Pressure 144/80 (mmHg) O2 Sat by Pulse 95 95 Oximetry 04/11/19 04/11/19 04/11/19 03:10 03:20 05:59 Temperature 98.3 F Pulse Rate 51 Respiratory 18 16 16 Rate Blood Pressure 133/72 (mmHg) O2 Sat by Pulse 100 100 99 Oximetry 04/11/19 04/11/19 04/11/19 06:30 07:00 07:15 Temperature 98.0 F Pulse Rate 55 57 Respiratory 16 18 Rate Blood Pressure 135/81 (mmHg) O2 Sat by Pulse 94 95 97 Oximetry 04/11/19 04/11/19 04/11/19 07:56 11:00 11:15 Temperature 98.0 F Pulse Rate 56 Respiratory 16 20 18 Rate Blood Pressure 153/85 (mmHg) O2 Sat by Pulse 94 100 Oximetry Laboratory Results - last 24 hr 04/10/19 04/11/19 22:18 07:20 POC Glucose (mg/dL) 82 104 H Intake & Output 04/10/19 04/11/1919 22:59 06:59 14:59 Intake Total 1505 895 Balance 1505 895 Intake: IV Fluids 900 785 D5W NS (0.9%) 807 785 NS (0.9%) 93 IVPB 125 110 ABX - ZOSYN 125 110 Oral 480 0 Other: # Bowel Movements 1 Estimated Stool Amount Small # Voids 0 1 Physical exam: Abdomen- soft, non distended, less tender in lower midline A/P: 54 M with perforated sigmoid diverticulitis, improving. - Continue clear liquid diet - Agree dc'ing basal administration of dilaudid on SPINNING DOFFER - Continue Zosyn - I reassured patient and his that initial BM may be loose and uncomfortable but overall patient's clinical progression seems much improved. He will likely be able to avoid surgical intervention on this admission, which would have most likely required a Hartmans procedure. I discussed with family that he will need to strongly consider an elective sigmoid resection as an outpatient if he continues to recover from this episode of complicated diverticulitis.
[2019-04-12] MEDS: ZOSYN 3.375 GM Q8H per EXTENDED INFUSION IVPB SCH ×6 (05:46→22:11)
[2019-04-12] MEDS: Enoxaparin(*) 40 MG/0.4 ML SYR SUBCUT SCH (05:46)
[2019-04-12 06:19] LABS: ABS Eosinophils 0.1 10^3/ul (0-0.6); ABS Lymphocytes 1.1 10^3/ul (1.0-4.8); ABS Monocytes 0.6 10^3/ul (0-0.8); ABS Neutrophils 3.5 10^3/ul (1.5-7.7); Eosinophil % 2.2 %; Hematocrit 33 % (42-52); Hemoglobin 11.8 g/dL (14.0-18.0); Lymphocyte % 19.8 %; Mean Corpuscular HGB Conc 35 g/dL (31-36); Mean Corpuscular Hemoglobin 32 pg (27-31); Mean Corpuscular Volume 89 fL (80-94); Mean Platelet Volume 7.4 fL (7.4-10.4); Platelet Count 138 10^3/uL (150-450); Red Blood Count 3.76 10^6 /uL (4.18-5.48); Red Cell Distribution Width 12 % (10-15); White Blood Count 5.4 10^3/uL (3.5-10.8)
[2019-04-12 06:34] LABS: BUN/Creatinine Ratio 14.9 (8-20); Calcium 8.7 mg/dL (8.6-10.3); EGFR African American 132.9 (>60); EGFR Non-African American 109.8 (>60); Magnesium 1.9 mg/dL (1.9-2.7); Potassium 3.4 mmol/L (3.5-5.0)
[2019-04-12] MEDS: Pantoprazole IV* 40 MG IV SCH (08:41)
[2019-04-12] MEDS: HYDROmorphone PCA* 20 MG/20 ML PCA.SYRING PCA SCH (08:41)
[2019-04-12] MEDS ORDERED: oxyCODONE TAB* 5 MG TAB PO PRN (10:01)
--- NOTE | 2019-04-12 10:21 | PN ---
Subjective Date of Service: 04/12/19 Interval History: Brandon continues to feel better. He is anxious to get home. His pain is controlled; he hasn't pushed the dilaudid LOOM DOFFER for a few hours. Is open to discontinuation of the LOOM DOFFER. Objective Active Medications: Acetaminophen (Tylenol Tab*) 650 mg PO Q4H PRN PRN Reason: FEVER/HEADACHE Enoxaparin Sodium (Lovenox(*)) 40 mg SUBCUT Q24H [facility] Last Admin: 04/12/19 05:46 Dose: 40 mg Piperacillin Sod/Tazobactam (Sod 3.375 gm/ Sodium Chloride) 100 mls @ 25 mls/ hr IVPB Q8H [facility] Last Admin: 04/12/19 05:46 Dose: 25 mls/hr Multi-Ingredient Liniment/Rub (Harish Rome*) 1 applic TOPICAL Q6H PRN PRN Reason: MUSCLE ACHES Last Admin: 04/10/19 20:13 Dose: 1 applic Naloxone HCl (Narcan*) 0.08 mg IV PUSH .Q2MIN PRN PRN Reason: OVERSEDATION Ondansetron HCl (Zofran Inj*) 4 mg IV Q6H PRN PRN Reason: NAUSEA Last Admin: 04/09/19 06:26 Dose: 4 mg Oxycodone HCl (Roxycodone Tab*) 5 mg PO Q4H PRN PRN Reason: PAIN - SEVERE Pantoprazole Sodium (Protonix Iv*) 40 mg IV DAILY [facility] Last Admin: 04/12/19 08:41 Dose: 40 mg Pharmacy Consult (Zosyn Per Pharmacy*) 1 note FOLLOW UP .ZOSYN PER PHARMACY [facility] Vital Signs - 8 hr 04/12/19 04/12/19 04/12/19 02:47 02:48 05:00 Temperature 98.2 F Pulse Rate 44 Respiratory 14 14 16 Rate Blood Pressure 134/66 (mmHg) O2 Sat by Pulse 97 97 97 Oximetry 04/12/19 04/12/19 06:50 07:15 Temperature 98.0 F Pulse Rate 48 Respiratory 16 18 Rate Blood Pressure 141/79 (mmHg) O2 Sat by Pulse 95 96 Oximetry Oxygen Devices in Use Now: None Appearance: alert, well appearing Eyes: No Scleral Icterus Ears/Nose/Mouth/Throat: NL Teeth, Lips, Gums Neck: NL Appearance and Movements; NL JVP Respiratory: Symmetrical Chest Expansion and Respiratory Effort Cardiovascular: NL Sounds; No Murmurs; No JVD, RRR Abdominal: NL Sounds; No Tenderness; No Distention, - - soft, nontender to deep palpation, bowel sounds hyperactive Lymphatic: No Cervical Adenopathy Extremities: No Edema Skin: No Rash or Ulcers Result Diagrams: 04/12/19 06:11 04/12/19 06:11 Additional Lab and Data: Lab Results 04/08/19 04/08/19 04/08/19 Range/Units 00:01 00:01 00:01 WBC 8.2 (3.5-10.8) 10^3/uL RBC 4.61 (4.18-5.48) 10^6 /uL Hgb 14.5 (14.0-18.0) g/dL Hct 41 L (42-52) % MCV 89 (80-94) fL MCH 32 H (27-31) pg MCHC 35 (31-36) g/dL RDW 13 (10-15) % Plt Count 152 (150-450) 10^3/uL MPV 8.1 (7.4-10.4) fL Neut % (Auto) 84.5 % Lymph % (Auto) 10.2 % [place] % (Auto) 4.3 % Eos % (Auto) 0.8 % Baso % (Auto) 0.2 % Absolute Neuts (auto) 6.9 (1.5-7.7) 10^3/ul Absolute Lymphs (auto) 0.8 L (1.0-4.8) 10^3/ul Absolute Monos (auto) 0.3 (0-0.8) 10^3/ul Absolute Eos (auto) 0.1 (0-0.6) 10^3/ul Absolute Basos (auto) 0.0 (0-0.2) 10^3/ul Absolute Nucleated RBC 0.0 10^3/ul Nucleated RBC % 0.2 INR (Anticoag Therapy) 0.95 (0.82-1.09) Lactic Acid 1.3 (0.5-2.0) mmol/L Assess/Plan/Problems-Billing Assessment: 53 yo M with h/o DM2, diverticulitis in the past presents with diverticulitis and perforation - Patient Problems (1) Perforation of sigmoid colon due to diverticulitis Current Visit: No Status: Acute Code(s): K57.20 - DVTRCLI OF LG INT W PERFORATION AND ABSCESS W/O BLEEDING SNOMED Code(s): 2815364057168764 Comment: Improving without surgical intervention cont Zosyn Surgery following DC dilaudid LOOM DOFFER; start oxy PRN advance diet to full liquids for lunch he is anxious for discharge and hopes to be home for [place]; I think that is a reasonable goal (2) DM2 (diabetes mellitus, type 2) Current Visit: Yes Status: Acute Comment: euglycemic now that diet has advanced (some hypoglycemia while npo) (3) DVT prophylaxis Current Visit: Yes Status: Acute Code(s): Z29.9 - ENCOUNTER FOR PROPHYLACTIC MEASURES, UNSPECIFIED SNOMED Code(s): 542684861 Comment: Box Status and Disposition: inpatient; DC LOOM DOFFER, advance diet. anticipate home independently at discharge.
--- NOTE | 2019-04-12 10:32 | PN ---
Progress Note - Progress Note Date of Service: 04/12/19 SOAP: Subjective: NAD + BM now more formed tolerating clrs [] Objective: Vital Signs Temp 98.0 F 04/12/19 07:15 Pulse 48 04/12/19 07:15 Resp 18 04/12/19 07:15 BP 141/79 04/12/19 07:15 Pulse Ox 96 04/12/19 07:15 Intake & Output 04/11/19 04/12/19 04/12/19 18:59 06:59 18:59 Intake Total 300 1660 360 Balance 300 1660 360 Intake: IV Fluids 700 ABX - ZOSYN 200 D5W NS (0.9%) 0 NS (0.9%) 500 NS (0.9%) 20 meq KCL 0 Oral 300 960 360 Other: # Voids 0 PEX: GEN:NAD Chest:CTA CVS:bradycardic rate ABD:soft, ND/NT EXT:calves soft non tender [] Assessment: 54 yo male with perforated diverticulitis responding well to conservative non operative IV Abx management. [] Plan: D/C [employer], PO Analgesia, increase diet to fulls, replace K+, transition to po abx on d/c. []
[2019-04-12] MEDS ORDERED: Potassium Chlor TAB* 10 MEQ TAB.ER PO ONE (10:34)
[2019-04-12] MEDS ORDERED: Potassium Chloride* LIQUID 20 MEQ/15 ML UDC PO ONE (17:53)
[2019-04-13] MEDS: Enoxaparin(*) 40 MG/0.4 ML SYR SUBCUT SCH (06:00)
[2019-04-13] MEDS: ZOSYN 3.375 GM Q8H per EXTENDED INFUSION IVPB SCH ×2 (06:03)
[2019-04-13 06:49] LABS: BUN/Creatinine Ratio 13.4 (8-20); Calcium 8.8 mg/dL (8.6-10.3); EGFR Non-African American 97.5 (>60); Potassium 3.6 mmol/L (3.5-5.0)
[2019-04-13] MEDS: Pantoprazole IV* 40 MG IV SCH (10:32)
--- NOTE | 2019-04-13 10:40 | PN ---
Progress Note - Progress Note Date of Service: 04/13/19 SOAP: Subjective: NAD, reports bm's more formed, tolerating fulls. no pain [] Objective: Vital Signs Temp 97.9 F 04/13/19 07:51 Pulse 65 04/13/19 07:51 Resp 18 04/13/19 07:51 BP 141/90 04/13/19 07:51 Pulse Ox 98 04/13/19 07:51 Intake & Output 04/12/19 04/13/19 04/13/19 18:59 06:59 18:59 Intake Total 2836 580 350 Balance 2836 580 350 Intake: IV Fluids 100 ABX - ZOSYN 100 IVPB 100 ABX - ZOSYN 100 Oral 2736 480 350 Other: # Bowel Movements 0 # Voids 0 PEX: GEN: NAD Chest: CTA B/L CVS: RRR Abd: soft, ND/NT + BS's Ext: calves soft, non tender [] Assessment: 54 yo male with perforated diverticulitis responding well to conservative management. Day 6 of IV Abx [] Plan: OK with D/C Home. Convert to PO Abx for total of 10-14 days, advance diet as tolerated to regular high fiber diet. Needs colonoscopy in 6 weeks follow up with Dr Zaman after colonoscopy, sooner if symptoms return. Patient also has had consistent bradycardia, has an echo scheduled for April, and a stress test scheduled for May, both valuable as pre operative studies. Above D/W Dr Zaman and Dr Johnson. []
[2019-04-13 10:55] VITALS: BP 141/92
== END 2019-04-13 13:15 | disposition home or self-care (01) | DRG 244 ==
LOC: ED 22:31 → MED 04-08 04:08
PROVIDERS: ADMIT Internal Medicine; ATTEND Internal Medicine
DX: K57.20 Diverticulitis of large intestine with perforation and abscess without bleeding (principal); I10 Essential (primary) hypertension; F41.9 Anxiety disorder, unspecified; K21.9 Gastro-esophageal reflux disease without esophagitis; E11.649 Type 2 diabetes mellitus with hypoglycemia without coma; R00.1 Bradycardia, unspecified; Z80.0 Family history of malignant neoplasm of digestive organs
CPT/HCPCS: 36415; 74177; 80048; 80053; 81003; 83036; 83605; 83690; 83735; 85025; 85027; 85610; 86140; 93005; 96374; 96375; 99284; A9270-GY; J1170; J1650; J1885; J2270; J2405; J2543; J3010; Q9967

== ENCOUNTER 2019-06-30 10:13 | Observation (INO) | payer BC ==
[2019-06-30] MEDS ORDERED: HYDROmorphone INJ* 0.5 MG/0.5 ML SYRINGE IV SLOW PU PRN (11:49)
[2019-06-30] MEDS ORDERED: Ondansetron INJ* 2 MG/ML VIAL IV PRN (11:49)
[2019-06-30] MEDS ORDERED: Acetaminophen TAB* 325 MG PO PRN (11:49)
[2019-06-30] MEDS ORDERED: Ibuprofen TAB* 600 MG PO PRN (11:49)
[2019-06-30] MEDS ORDERED: HYDROmorphone INJ1* 1 MG/ML SYRINGE IV SLOW PU PRN (12:03)
[2019-06-30] MEDS: Polyethylene Glycol 3350* 17 GM PACKET PO SCH (14:08)
[2019-06-30] MEDS: metroNIDAZOLE IV 500 MG/100ML* 500 MG/100 ML BAG IVPB SCH ×2 (14:09→20:15)
[2019-06-30] MEDS: Lactated Ringers 1000 ML Bag* 1,000 ML IV SCH (14:09)
[2019-06-30 14:10] LABS: ABS Basophils 0.1 10^3/ul (0-0.2); ABS Eosinophils 0.1 10^3/ul (0-0.6); ABS Lymphocytes 1.8 10^3/ul (1.0-4.8); ABS Monocytes 0.5 10^3/ul (0-0.8); ABS Neutrophils 5.9 10^3/ul (1.5-7.7); Eosinophil % 1.7 %; Hematocrit 42 % (42-52); Hemoglobin 14.8 g/dL (14.0-18.0); Lymphocyte % 21.7 %; Mean Corpuscular HGB Conc 36 g/dL (31-36); Mean Corpuscular Hemoglobin 31 pg (27-31); Mean Corpuscular Volume 87 fL (80-94); Mean Platelet Volume 8.5 fL (7.4-10.4); Platelet Count 181 10^3/uL (150-450); Red Blood Count 4.82 10^6 /uL (4.18-5.48); Red Cell Distribution Width 13 % (10-15); White Blood Count 8.5 10^3/uL (3.5-10.8)
[2019-06-30 14:26] LABS: Albumin 4.7 g/dL (3.2-5.2); Albumin/Globulin Ratio 1.7 (1-3); BUN/Creatinine Ratio 18.4 (8-20); C Reactive Protein 9.36 mg/L (<8.01); Calcium 10.2 mg/dL (8.6-10.3); EGFR African American 110.2 (>60); EGFR Non-African American 91.1 (>60); Globulin 2.7 g/dL (2-4); Potassium 3.7 mmol/L (3.5-5.0); Total Bilirubin 0.7 mg/dL (0.2-1.0); Total Protein 7.4 g/dL (6.4-8.9)
[2019-06-30] MEDS: Ciprofloxacin 400MG IVPREMIX(* 400 MG/200 ML BAG IVPB SCH (16:04)
--- NOTE | 2019-06-30 20:20 | HP ---
CC: Dr. Carlton Treviño; Dr. Johnny Wheeler * ADMISSION HISTORY AND PHYSICAL: DATE OF ADMISSION: 06/30/19 ATTENDING SURGEON: Dr. Romeo Montero.* (DICTATED BY JORDY LOPEZ) CHIEF COMPLAINT: Abdominal pain. HISTORY OF PRESENT ILLNESS: This is a 54-year-old male who was admitted to [facility] [place] from 04/08/19 to 04/13/19 for acute diverticulitis with microperforation. He responded well to IV antibiotics and completed a total of 2 weeks of IV and oral antibiotics with resolution of the episode. He underwent colonoscopy on showing moderately severe diverticulosis between 22 and 45 cm. There was also some segmental colitis. In addition, he had 4 benign polyps removed with recommended followup in 5 years. He remained in his usual state of health until last evening when he began to experience some lower abdominal pain. He described this as dull, at a level of about 3/10. It would variously move to the right or left, but no preponderance for laterality. He states that it felt similar to previous episodes in the past (he also had episodes of diverticulitis , one that was treated as an inpatient about 10 years ago and the other a couple years ago treated as an outpatient). He denies fever, chills, nausea, or vomiting. He states that he did pass both a combination of loose and formed stool last night (his usual habit being 3 formed stools per day with regular use of psyllium supplement once daily). He has had some flatus, but not his usual. There is no family history of diverticular disease or colorectal cancer. He was scheduled and seen in the office today by Dr. Montero purposely for planning elective sigmoid resection. Dr. Montero felt that he was indeed having an episode of acute diverticulitis and was referred for admission and workup as well as IV antibiotics. PAST MEDICAL HISTORY: Diverticulitis as noted above, hypertension, anxiety, and depression (the patient states mostly "stress"). He has been told that he is prediabetic and has been maintained on metformin. PAST SURGICAL HISTORY: Previous surgery is limited to dental extractions. No problems reported. CURRENT MEDICATIONS: 1. Sertraline 100 mg once daily. 2. Metformin 500 mg 2 tablets once daily. 3. Nexium 20 mg once daily. 4. Atorvastatin 20 mg once daily. 5. Eden-3 fatty acid supplement once daily. 6. L-Glutamine 500 mg once daily. 7. Vitamin D 1000 International Units once daily. 8. Metoprolol 25 mg extended release one half tablet once daily. DRUG ALLERGIES: None known. FAMILY HISTORY: Negative for anesthesia problems, bleeding or clotting disorders as well as colorectal disease as noted above (possibly colon cancer in a grandfather, though he is not sure). SOCIAL HISTORY: The patient is . 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 He denies use of tobacco. He formerly had approximately 1 glass of wine per day, but in recent months that is down to about once weekly. He denies use of any other recreational drugs. REVIEW OF SYSTEMS: General: No recent constitutional symptoms or acute illnesses other than described above. HEENT: No problems reported. Cardiovascular: No chest pain, palpitations, history of heart murmur. He was treated for hypertension. The patient did undergo a nuclear stress test in May, which he states was a normal study other than some mild enlargement of the aorta for which he will be followed by echocardiogram, but no other recommendations made. Respiratory: No chronic cough or shortness of breath. GI : As above per HPI. No additions. : No symptoms of dysuria, increased frequency, or hematuria. Endocrine: Possibly prediabetes, though most recent A1c in March was 5.6. No thyroid dysfunction. Neuro/Psych: No additions. PHYSICAL EXAMINATION GENERAL: Well-nourished, mildly obese male, in no acute distress. VITAL SIGNS: Height 5 inches 10 feet, weight 213 pounds, BMI 30.6. Temperature 97.7, blood pressure 138/100, pulse 63, respirations 16, room air saturation 100%. HEENT: Pupils are equal, round, and reactive. EOMs intact. No conjunctival pallor. Oropharynx: Mucous membranes moist. Teeth in good repair. No intraoral lesions. NECK: No lymphadenopathy, thyromegaly, or masses. LUNGS: Clear to auscultation. No rales or wheezes. HEART: Regular rate and rhythm. No murmur appreciated. ABDOMEN: Mildly obese, soft with very mild suprapubic and left greater than right lower quadrant tenderness, but without guarding, rigidity, or rebound. No palpable masses. No palpable hernias. GENITALIA: Not done. RECTAL: Not done. BACK: No spinous process or CVA tenderness. EXTREMITIES: No edema. NEUROLOGIC: Grossly intact. SKIN: Warm and dry. No suspicious rashes or lesions. DIAGNOSTIC STUDIES/LAB DATA: Initial laboratory work reveals a white blood cell count of 8500 with normal differential, hemoglobin of 14.8. Chemistries are still pending, as is a CT scan with oral contrast. IMPRESSION: Acute diverticulitis. PLAN/RECOMMENDATIONS: Pending results of the CT and his clinical course, he hopefully has a mild uncomplicated episode of diverticulitis and may be able to complete his antibiotic therapy as an outpatient. This would also of course push back any near-term plans for surgical resection, though he will continue to have that conversation with Dr. Montero, who will follow his clinical course. JORDY LOPEZ [id number]/CPS #: [id number] MTDDunia
[2019-07-01] MEDS: Lactated Ringers 1000 ML Bag* 1,000 ML IV SCH ×2 (00:04→08:12)
[2019-07-01] MEDS: Ciprofloxacin 400MG IVPREMIX(* 400 MG/200 ML BAG IVPB SCH (02:38)
[2019-07-01 07:38] VITALS: BP 127/84
[2019-07-01] MEDS ORDERED: metroNIDAZOLE IV 500 MG/100ML* 500 MG/100 ML BAG IVPB SCH (08:00)
[2019-07-01] MEDS: Polyethylene Glycol 3350* 17 GM PACKET PO SCH (08:23)
[2019-07-01] MEDS ORDERED: Metoprolol Succinate XL TAB* 25 MG PO SCH (09:00)
[2019-07-01] MEDS ORDERED: Sertraline* 100 MG TAB PO SCH (09:00)
[2019-07-01] MEDS ORDERED: Pantoprazole TAB * 40 MG TAB PO SCH (09:00)
--- NOTE | 2019-07-01 10:19 | DS ---
Discharge Summary Surgeon: Kylah Admit Date:06/30/2019 Discharge Date:07/01/2019 Admission DX:Diverticulitis Discharge DX:Diverticulitis Condition at Discharge:Stable Date of D/C PEX: Gen: NAD, no abdominal pain, + bm's Chest:CTAB CVS: RRR ABD: soft, ND/NT, no guarding EXT: calves soft non tender Procedures Performed:IV Fluids and Antibiotics Hospital Course:54 yo male with diverticulitis sent from office for direct admit due to his having a flare of diverticulitis. Received IV Cipro and Flagyl , feels 100% improved. Benign exam this morning. will d.c home on 2 weeks of cipro and flagyl, return to clinic in 1 week for follow up above d/w patient and Dr Montero. Al questions were answered Discharge instructions were given to the patient regarding Diet, Medications, Activity, and post operative Follow up. All Questions were answered. Discharged Home in Stable Condition on 07/01/2019
== END 2019-07-01 11:05 | disposition home or self-care (01) ==
LOC: SSU 10:13
PROVIDERS: ADMIT Surgery; ATTEND Surgery
DX: K57.92 Diverticulitis of intestine, part unspecified, without perforation or abscess without bleeding (principal); I10 Essential (primary) hypertension; F41.9 Anxiety disorder, unspecified; F32.9 Major depressive disorder, single episode, unspecified; R73.03 Prediabetes; Z79.899 Other long term (current) drug therapy; Z79.84 Long term (current) use of oral hypoglycemic drugs
CPT/HCPCS: 36415; 74176; 80053; 85025; 86140; 96361; 96365; 96366; 96367; A9270-GY; G0378; J0744

== ENCOUNTER 2020-08-07 06:05 | Inpatient (IN) ==
[~2020-08-07 06:05] MED LIST: Buffered Lidocaine 1% SYRIN 1 ml INTRADERM ONE; Lactated Ringers 1000 ml BAG 1,000 ML IV SCH
[2020-08-07] MEDS ORDERED: Bupivacaine 0.5% SDV PF 30ML VIAL ONE ×2 (07:00→12:13)
[2020-08-07] MEDS ORDERED: Propofol 10 MG/ML 20 ML BTL ONE (07:10)
[2020-08-07] MEDS ORDERED: Lidocaine 2% PF 5 ML VIAL ONE (07:10)
[2020-08-07] MEDS ORDERED: Ketamine HCL 50 mg/ml 10 ml VIAL (500 MG) ONE (07:10)
[2020-08-07] MEDS ORDERED: Midazolam 2 mg/2 ml VIAL 1 mg/ml 2 ml VIAL (2 mg) ONE (07:10)
[2020-08-07] MEDS ORDERED: fentaNYL 100 mcg/2 ml 50 MCG/ML VIAL ONE (07:10)
[2020-08-07] MEDS ORDERED: Rocuronium 50 mg VIAL 10 mg/ml 5 ml VIAL (50 mg) ONE ×3 (07:11→12:16)
[2020-08-07] MEDS ORDERED: Ertapenem 1 GM in NS 0.9% 50 ML IVPB ONE (07:30)
[2020-08-07] MEDS ORDERED: Heparin 5000 UNITS/ML 1 mL VIAL ONE (07:39)
[2020-08-07] MEDS ORDERED: Glycopyrrolate IV 0.2 MG/ML 1 ML VIAL ONE (10:06)
[2020-08-07] MEDS ORDERED: Ondansetron 4 mg VIAL 2 MG/ML 2 ml VIAL IV PRN ×2 (10:20→13:38)
[2020-08-07] MEDS ORDERED: Naloxone 0.4 mg VIAL 0.4 mg/ml 1 ml VIAL IV PRN (10:20)
[2020-08-07] MEDS ORDERED: HYDROmorphone 1 MG/1 ML SYRINGE IV PRN (10:20)
[2020-08-07] MEDS ORDERED: EPHEDrine (Pressors) 50 MG/ML VIAL ONE (11:25)
[2020-08-07] MEDS ORDERED: Dexamethasone IV 4 MG/ML VIAL 1 ml VIAL ONE (12:13)
[2020-08-07] MEDS ORDERED: HYDROmorphone 1 MG/1 ML SYRINGE IV SLOW PU PRN (13:38)
[2020-08-07] MEDS ORDERED: Ondansetron 4 mg VIAL 2 MG/ML 2 ml VIAL ONE (14:12)
[2020-08-07] MEDS ORDERED: Sugammadex 500 MG/5 ML 5 ml VIAL IV PUSH ONE (14:12)
[2020-08-07] MEDS ORDERED: HYDROmorphone 0.5 MG/0.5 ML SYRINGE IV SLOW PU PRN (17:12)
[2020-08-08 06:21] LABS: ABS Lymphocytes 0.8 10^3/ul (1.0-4.8); ABS Monocytes 0.8 10^3/ul (0-0.8); ABS Neutrophils 8.2 10^3/ul (1.5-7.7); Hematocrit 36 % (42-52); Hemoglobin 12.7 g/dL (14.0-18.0); Mean Corpuscular HGB Conc 35 g/dL (31-36); Mean Corpuscular Hemoglobin 31 pg (27-31); Mean Corpuscular Volume 88 fL (80-94); Mean Platelet Volume 8.2 fL (7.4-10.4); Platelet Count 163 10^3/uL (150-450); Red Cell Distribution Width 13 % (10-15); White Blood Count 9.8 10^3/uL (3.5-10.8)
[2020-08-08 06:51] LABS: BUN/Creatinine Ratio 15.2 (8-20); Calcium 8.8 mg/dL (8.6-10.3); EGFR African American 94.6 (>60); EGFR Non-African American 78.2 (>60); Potassium 3.9 mmol/L (3.5-5.0)
[2020-08-08] MEDS: Heparin 5000 UNITS/ML 1 mL VIAL SUBCUT SCH ×2 (08:12→20:18)
[2020-08-09 05:58] LABS: Hematocrit 34 % (42-52); Hemoglobin 12.1 g/dL (14.0-18.0); Mean Corpuscular HGB Conc 35 g/dL (31-36); Mean Corpuscular Hemoglobin 31 pg (27-31); Mean Corpuscular Volume 89 fL (80-94); Mean Platelet Volume 8.5 fL (7.4-10.4); Platelet Count 138 10^3/uL (150-450); Red Blood Count 3.89 10^6 /uL (4.18-5.48); Red Cell Distribution Width 13 % (10-15); White Blood Count 6.1 10^3/uL (3.5-10.8)
[2020-08-09 06:11] LABS: Calcium 8.6 mg/dL (8.6-10.3); EGFR African American 93.5 (>60); EGFR Non-African American 77.3 (>60); Potassium 4.1 mmol/L (3.5-5.0)
[2020-08-09] MEDS: Heparin 5000 UNITS/ML 1 mL VIAL SUBCUT SCH (08:29)
[2020-08-09 14:50] VITALS: BP 130/72
== END 2020-08-09 15:29 | disposition home or self-care (01) | DRG 221 ==
LOC: AA 06:05 → SSU 13:39
PROVIDERS: ADMIT Surgery; ATTEND Surgery